=== PATIENT | female | born 1945 | race Caucasian/White ===

== ENCOUNTER → 2017-07-19 | Outpatient (CLI) | payer MEDICARE ==
[~2017-07-19] MED LIST: CALC-126 PO; CARV-39 PO; MULT-658 PO; POTA10TA6 PO; PRAV40TA2 PO; TRIA1CAP3 PO; vitamin b-6 PO; vitamin d3 PO
== END | disposition home or self-care (01) ==
LOC: STAR 13:40
PROVIDERS: ATTEND Orthopaedic Surgery
DX: Z01.818 Encounter for other preprocedural examination (principal); M25.552 Pain in left hip
CPT/HCPCS: 36415; 87081; 87806; 93005; G0475

== ENCOUNTER 2017-07-25 05:25 | Inpatient (IN) | payer MEDICARE ==
[~2017-07-25] VITALS: Ht 157.5 cm; Wt 73.9 kg
[2017-07-25] MEDS ORDERED: VANCOMYCIN PMX 1GM/200ML 200 ML IV ONE (05:45)
[2017-07-25] MEDS ORDERED: LACTATED RINGERS 1,000 ML IV SCH (06:33)
[2017-07-25] MEDS ORDERED: ROCURONIUM 10 MG/ML,10ML ONE (06:50)
[2017-07-25] MEDS ORDERED: PROPOFOL 10 MG/ML, 20ML ONE (06:50)
[2017-07-25] MEDS ORDERED: CEFAZOLIN 1,000 MG ONE ×2 (06:51)
[2017-07-25] MEDS ORDERED: KETOROLAC 60 MG/2 ML ONE (06:56)
[2017-07-25] MEDS ORDERED: FENTANYL PF 250 MCG/5ML ONE (06:56)
[2017-07-25] MEDS ORDERED: morphine SULFATE/PF 1 MG/ML, 10ML ONE (06:57)
[2017-07-25] MEDS ORDERED: TRANEXAMIC ACID 100 MG/ML, 10ML ONE (06:57)
[2017-07-25] MEDS ORDERED: ROPIvacaine/PF 0.2%, 20 ML ONE (06:57)
[2017-07-25] MEDS ORDERED: SODIUM CHLORIDE 0.9% 100 ML ONE (06:58)
[2017-07-25] MEDS ORDERED: EPINEPHRINE 1 MG/ML, 1ML ONE (06:58)
[2017-07-25] MEDS ORDERED: BACITRACIN 50,000 UNIT ONE (06:58)
[2017-07-25] MEDS ORDERED: ACETAMINOPHEN 500 MG TABLET ONE (06:59)
[2017-07-25] MEDS ORDERED: OXYcodone IR 5MG TABLET ONE ×2 (06:59→07:00)
[2017-07-25] MEDS ORDERED: ACETAMINOPHEN 325 MG TABLET ONE (07:00)
[2017-07-25] MEDS ORDERED: GABAPENTIN 300 MG CAPSULE ONE ×2 (07:00)
[2017-07-25] MEDS ORDERED: LABETALOL 5MG/ML, 20ML IV PRN (08:00)
[2017-07-25] MEDS ORDERED: ALBUTEROL SULFATE 2.5 MG/3 ML NPPB PRN (08:00)
[2017-07-25] MEDS ORDERED: DIAZEPAM 5 MG/ML, 2ML IVPush PRN (08:00)
[2017-07-25] MEDS ORDERED: PROMETHAZINE 25 MG/ML, 1ML IV PRN (08:00)
[2017-07-25] MEDS ORDERED: EPHEDRINE 50 MG/ML, 1ML IVPush PRN (08:00)
[2017-07-25] MEDS ORDERED: METOPROLOL 1 MG/ML, 5ML IV PRN (08:00)
[2017-07-25] MEDS ORDERED: morphine SULFATE 10 MG/ML, 1ML IV PRN (08:00)
[2017-07-25] MEDS ORDERED: ONDANSETRON 2MG/ML, 2ML IVPush PRN (08:00)
[2017-07-25] MEDS ORDERED: OXYcodone 5 MG/5 ML ORAL.SOL UDC PO PRN (08:00)
[2017-07-25] MEDS ORDERED: hydrALAzine 20 MG/ML, 1ML IV PRN (08:00)
[2017-07-25] MEDS ORDERED: FENTANYL PF 100 MCG/2ML IV PRN (08:00)
[2017-07-25] MEDS ORDERED: OXYcodone 5 MG/5 ML ORAL.SOL UDC ONE (09:27)
[2017-07-25] MEDS ORDERED: ACETAMINOPHEN 325 MG TABLET PO PRN (09:30)
[2017-07-25] MEDS ORDERED: ZOLPIDEM 5MG TABLET PO PRN (09:30)
[2017-07-25] MEDS ORDERED: DIPHENHYDRAMINE 25 MG CAPSULE PO PRN (09:30)
[2017-07-25] MEDS ORDERED: FENTANYL PF 100 MCG/2ML ONE (09:30)
[2017-07-25] MEDS ORDERED: LORazepam 2 MG/ML, 1ML IVPush PRN (09:30)
[2017-07-25] MEDS ORDERED: MORPHINE SULFATE 4 MG/ML, 1ML ONE ×2 (09:36→18:48)
[2017-07-25] MEDS ORDERED: DEXAMETHASONE 4 MG/ML, 1ML ONE (09:47)
[2017-07-25] MEDS ORDERED: NEOSTIGMINE 1 MG/ML, 10ML ONE (09:47)
[2017-07-25] MEDS ORDERED: ONDANSETRON 2MG/ML, 2ML ONE (09:47)
[2017-07-25] MEDS ORDERED: GLYCOPYRROLATE 0.2MG/1ML, 5ML ONE (09:47)
[2017-07-25 10:25] VITALS: BP 128/76
[2017-07-25] MEDS: D5%-0.45% NACL 1,000 ML IV SCH ×3 (10:59→20:21)
[2017-07-25] MEDS: morphine SULFATE 10 MG/ML, 1ML IVPush PRN ×2 (11:05→19:02)
[2017-07-25] MEDS ORDERED: VANCOMYCIN PER PHARMACY MC STA (11:30)
[2017-07-25] MEDS ORDERED: TRANEXAMIC ACID 1,000 MG in SODIUM CHLORIDE 0.9% 100 ML IV ONE (12:00)
[2017-07-25 13:00] VITALS: BP 133/62
[2017-07-25] MEDS: OXYcodone/APAP 7.5/325MG TABLET PO PRN (13:15)
[2017-07-25] MEDS: ONDANSETRON 2MG/ML, 2ML IVPush PRN ×3 (15:09→23:03)
[2017-07-25] MEDS: CEFAZOLIN PMX 1GM/50ML 50 ML IVPB SCH ×2 (15:09→23:03)
[2017-07-25] MEDS: CARVEDILOL 25 MG TABLET PO SCH (19:17)
[2017-07-25] MEDS: POTASSIUM CHLORIDE 10 MEQ TABLET.ER PO SCH (20:24)
[2017-07-25] MEDS: PRAVASTATIN 40 MG TABLET PO SCH (20:24)
[2017-07-25] MEDS: CALCIUM/VITAMIN D3 250-125 TABLET PO SCH (20:24)
[2017-07-25 20:32] VITALS: BP 121/59
[2017-07-25 20:59] VITALS: BP 115/67
[2017-07-26 00:05] VITALS: BP 106/58
[2017-07-26] MEDS: D5%-0.45% NACL 1,000 ML IV SCH ×3 (02:03→09:24)
[2017-07-26 04:00] VITALS: BP 100/55
[2017-07-26] MEDS: ONDANSETRON 2MG/ML, 2ML IVPush PRN ×2 (04:56→10:25)
[2017-07-26] MEDS ORDERED: VANCOMYCIN PMX 1GM/200ML 200 ML IVPB ONE (07:00)
[2017-07-26 07:17] VITALS: BP 111/54
[2017-07-26] MEDS: CARVEDILOL 25 MG TABLET PO SCH ×2 (07:17→17:33)
[2017-07-26] MEDS: CEFAZOLIN PMX 1GM/50ML 50 ML IVPB SCH (07:18)
[2017-07-26] MEDS: ASPIRIN 325 MG TABLET EC PO SCH ×2 (08:23→17:35)
[2017-07-26] MEDS: POTASSIUM CHLORIDE 10 MEQ TABLET.ER PO SCH ×2 (08:23→20:49)
[2017-07-26] MEDS: CHOLECALCIFEROL 400 UNITS TABLET PO SCH (08:24)
[2017-07-26] MEDS: MULTIVITAMIN 1 TABLET PO SCH (08:24)
[2017-07-26] MEDS: PYRIDOXINE 25MG TABLET PO SCH (08:24)
[2017-07-26] MEDS: CALCIUM/VITAMIN D3 250-125 TABLET PO SCH ×2 (08:24→20:49)
[2017-07-26] MEDS: OXYcodone/APAP 7.5/325MG TABLET PO PRN (08:24)
[2017-07-26] MEDS: TRIAMTERENE-HCTZ 37.5/25 MG TABLET PO SCH (08:24)
[2017-07-26 12:56] VITALS: BP 93/57
[2017-07-26] MEDS ORDERED: D5%-LACTATED RINGERS 1,000 ML IV SCH (13:30)
[2017-07-26] MEDS ORDERED: ONDANSETRON 4 MG TABLET PO PRN (13:30)
[2017-07-26] MEDS: HYDROcodone/APAP 5/325 TABLET PO PRN ×2 (16:41→20:49)
[2017-07-26] MEDS ORDERED: ASPIRIN 325 MG TABLET EC PO SCH (17:00)
[2017-07-26 18:36] VITALS: BP 110/64
[2017-07-26] MEDS: PRAVASTATIN 40 MG TABLET PO SCH (20:49)
[2017-07-26] MEDS: DOCUSATE 100 MG CAPSULE PO SCH (20:49)
[2017-07-26] MEDS ORDERED: VALACYCLOVIR 500MG TABLET PO SCH (21:00)
[2017-07-27 01:49] VITALS: BP 144/71
[2017-07-27] MEDS: HYDROcodone/APAP 5/325 TABLET PO PRN ×2 (02:07→07:04)
[2017-07-27] MEDS: CARVEDILOL 25 MG TABLET PO SCH (06:39)
[2017-07-27 06:43] VITALS: BP 147/77
[2017-07-27] MEDS: DOCUSATE 100 MG CAPSULE PO SCH (08:38)
[2017-07-27] MEDS: POTASSIUM CHLORIDE 10 MEQ TABLET.ER PO SCH (08:38)
[2017-07-27] MEDS: ASPIRIN 325 MG TABLET EC PO SCH (08:38)
[2017-07-27] MEDS: PYRIDOXINE 25MG TABLET PO SCH (08:39)
[2017-07-27] MEDS: TRIAMTERENE-HCTZ 37.5/25 MG TABLET PO SCH ×2 (08:39→08:49)
[2017-07-27] MEDS: CHOLECALCIFEROL 400 UNITS TABLET PO SCH (08:39)
[2017-07-27] MEDS: CALCIUM/VITAMIN D3 250-125 TABLET PO SCH (08:40)
[2017-07-27] MEDS: MULTIVITAMIN 1 TABLET PO SCH (08:40)
[2017-07-27 08:47] VITALS: BP 87/51
== END 2017-07-27 11:57 | disposition home or self-care (01) | DRG 470 ==
LOC: ORIP 05:25 → 4NOR 10:20 → DCLOUNGE 07-27 11:40
PROVIDERS: ADMIT Orthopaedic Surgery; ATTEND Orthopaedic Surgery
PROC: 0SRB0JZ Replacement of Left Hip Joint with Synthetic Substitute, Open Approach (ICD-10-PCS; principal; 2017-07-25 07:30)
DX: M16.12 Unilateral primary osteoarthritis, left hip (principal)
CPT/HCPCS: 36415; 85018; 86850; 86900; C1713; J0171; J0690; J1100; J1885; J2274; J2405; J2704; J2710; J2795; J3010; J3370; J3490; Q0162; C1776; J2270; J7120; J7121